=== PATIENT | female | born 1940 | race Caucasian/White ===

== ENCOUNTER 2017-01-08 05:51 | Inpatient (IN) | payer MEDICARE, BC ==
[2017-01-07 15:18] LABS: HEMATOCRIT 37.9 % (34.6-47.8); HEMOGLOBIN 12.8 g/dL (11.7-16.4); WHITE BLOOD COUNT 5.4 x10^3/uL (3.4-10)
[2017-01-07 15:24] LABS: ASPARTATE AMINO TRANSFERASE 18 U/L (15-37); BLOOD UREA NITROGEN 11 mg/dL (7-18)
[~2017-01-08] VITALS: Ht 154.9 cm; Wt 62.2 kg
[~2017-01-08 05:51] MED LIST: ASPI-496 PO; ATOR80TA PO; LEVO25TA2 PO; LISI-167 PO; METO-93 PO; NITR100C6 PO; OXYC-302 PO; TICA90TA PO; ZOLP12.52 PO
[2017-01-08] MEDS ORDERED: TRANEXAMIC ACID 100 MG/ML, 10ML ONE ×2 (06:07→09:03)
[2017-01-08] MEDS ORDERED: VANCOMYCIN PER PHARMACY MC STA (06:33)
[2017-01-08] MEDS ORDERED: FENTANYL PF 100 MCG/2ML ONE ×4 (06:41→09:42)
[2017-01-08] MEDS ORDERED: MIDAZOLAM 1 MG/ML, 2ML ONE (06:41)
[2017-01-08] MEDS ORDERED: PHARMACOKINETIC CONSULTATION MC ONE (07:00)
[2017-01-08] MEDS ORDERED: VANCOMYCIN PMX 1GM/200ML 200 ML IV ONE (07:00)
[2017-01-08] MEDS ORDERED: LACTATED RINGERS 1,000 ML IV SCH (07:03)
[2017-01-08] MEDS ORDERED: MULT-6 PO (07:05)
[2017-01-08] MEDS ORDERED: OMEP-110 PO (07:05)
[2017-01-08] MEDS ORDERED: morphine SULFATE/PF 1 MG/ML, 10ML ONE (07:08)
[2017-01-08] MEDS ORDERED: LIDOCAINE 1%, 2ML ONE (07:09)
[2017-01-08] MEDS ORDERED: ROPIvacaine/PF 0.2%, 20 ML ONE (07:09)
[2017-01-08] MEDS ORDERED: KETOROLAC 60 MG/2 ML ONE (07:09)
[2017-01-08] MEDS ORDERED: EPINEPHRINE 1 MG/ML, 1ML ONE (07:09)
[2017-01-08] MEDS ORDERED: LIDOCAINE 1%, 2ML SQ PRN (07:30)
[2017-01-08] MEDS ORDERED: DEXAMETHASONE 4 MG/ML, 1ML ONE (07:44)
[2017-01-08] MEDS ORDERED: ONDANSETRON 2MG/ML, 2ML ONE (07:44)
[2017-01-08] MEDS ORDERED: PROPOFOL 10 MG/ML, 20ML ONE (07:44)
[2017-01-08] MEDS ORDERED: METOPROLOL 1 MG/ML, 5ML ONE (07:44)
[2017-01-08] MEDS ORDERED: CLINDAMYCIN 150 MG/ML, 6ML ONE (07:53)
[2017-01-08] MEDS ORDERED: ACETAMINOPHEN 325 MG TABLET PO PRN ×2 (08:30→12:30)
[2017-01-08] MEDS ORDERED: METOPROLOL 1 MG/ML, 5ML IV PRN (08:30)
[2017-01-08] MEDS ORDERED: ALBUTEROL SULFATE 2.5 MG/3 ML NPPB PRN (08:30)
[2017-01-08] MEDS ORDERED: MEPERIDINE/PF 25MG/0.5ML IVPush PRN (08:30)
[2017-01-08] MEDS ORDERED: LORazepam 2 MG/ML, 1ML IVPush PRN (08:30)
[2017-01-08] MEDS ORDERED: hydrALAzine 20 MG/ML, 1ML IV PRN (08:30)
[2017-01-08] MEDS ORDERED: PROMETHAZINE 25 MG/ML, 1ML IV PRN (08:30)
[2017-01-08] MEDS: FENTANYL PF 100 MCG/2ML IV PRN ×2 (09:44→09:50)
[2017-01-08] MEDS ORDERED: ACETAMINOPHEN 650 MG/20.3 ML UDC ONE (09:52)
[2017-01-08] MEDS ORDERED: HYDROmorphone 2 MG/ML, 1ML ONE (09:53)
[2017-01-08] MEDS ORDERED: OXYcodone 5 MG/5 ML ORAL.SOL UDC ONE ×2 (09:53→10:25)
[2017-01-08] MEDS: HYDROmorphone 1 MG/ML, 1ML IV PRN ×5 (09:55→11:06)
[2017-01-08] MEDS: OXYcodone 5 MG/5 ML ORAL.SOL UDC PO PRN ×2 (09:56→10:26)
[2017-01-08] MEDS ORDERED: LORazepam 2 MG/ML, 1ML ONE (10:03)
[2017-01-08] MEDS ORDERED: PROMETHAZINE 25 MG/ML, 1ML ONE (10:37)
[2017-01-08 12:01] VITALS: BP 129/77
[2017-01-08] MEDS ORDERED: TRANEXAMIC ACID 1,000 MG in SODIUM CHLORIDE 0.9% 100 ML IVPB ONE (12:30)
[2017-01-08] MEDS ORDERED: LORazepam 1MG TABLET PO PRN (12:30)
[2017-01-08] MEDS ORDERED: MAGNESIUM HYDROXIDE 8%, 30ML UDC PO PRN (12:30)
[2017-01-08] MEDS ORDERED: ONDANSETRON 2MG/ML, 2ML IVPush PRN (12:30)
[2017-01-08] MEDS ORDERED: PROMETHAZINE 25 MG SUPP PR PRN (12:30)
[2017-01-08] MEDS ORDERED: ALUMINUM/MAG/SIMETHICONE 30 ML UDC PO PRN (12:30)
[2017-01-08] MEDS ORDERED: DIPHENHYDRAMINE 25 MG CAPSULE PO PRN (12:30)
[2017-01-08] MEDS ORDERED: OXYcodone IR 5MG TABLET PO PRN (12:30)
[2017-01-08] MEDS ORDERED: morphine SULFATE 10 MG/ML, 1ML IV PRN (12:30)
[2017-01-08] MEDS ORDERED: ONDANSETRON ODT 4 MG PO PRN (12:30)
[2017-01-08] MEDS ORDERED: DIAZEPAM 5 MG TABLET PO PRN (12:30)
[2017-01-08] MEDS ORDERED: SCOPOLAMINE PATCH, 1.5MG PATCH.TD72 TD PRN (12:30)
[2017-01-08] MEDS ORDERED: LORazepam 2 MG/ML, 1ML IV PRN (12:30)
[2017-01-08] MEDS ORDERED: PROMETHAZINE 25 MG/ML, 1ML IM PRN (12:30)
[2017-01-08] MEDS ORDERED: BISACODYL 10 MG SUPP PR PRN (12:30)
[2017-01-08] MEDS ORDERED: SENNA/DOCUSATE TABLET PO PRN (12:30)
[2017-01-08 13:05] VITALS: BP 117/68
[2017-01-08] MEDS: D5%-LACTATED RINGERS 1,000 ML IV SCH (13:25)
[2017-01-08] MEDS: CEFAZOLIN PMX 2GM/100ML 100 ML IVPB SCH ×2 (15:13→23:52)
[2017-01-08 19:15] VITALS: BP 118/66
[2017-01-08] MEDS ORDERED: ATORVASTATIN 80 MG TABLET PO SCH (21:00)
[2017-01-08] MEDS: HYDROcodone/APAP 5/325 TABLET PO PRN (21:43)
[2017-01-08] MEDS: DOCUSATE 100 MG CAPSULE PO SCH (21:43)
[2017-01-08] MEDS: METOPROLOL SUCCINATE 50 MG TAB.ER.24H PO SCH (21:43)
[2017-01-09] MEDS: HYDROcodone/APAP 5/325 TABLET PO PRN ×3 (00:17→12:53)
[2017-01-09] MEDS: D5%-LACTATED RINGERS 1,000 ML IV SCH ×2 (01:06→07:55)
[2017-01-09] MEDS ORDERED: RIVAROXABAN 10 MG TABLET PO SCH (06:00)
[2017-01-09] MEDS ORDERED: LEVOTHYROXINE 25 MCG TABLET PO SCH (06:00)
[2017-01-09 06:10] LABS: HEMATOCRIT 29.9 % (34.6-47.8); HEMOGLOBIN 10.1 g/dL (11.7-16.4)
[2017-01-09 06:30] VITALS: BP 104/64
[2017-01-09] MEDS ORDERED: OMEPRAZOLE 20 MG CAPSULE.DR PO SCH (07:30)
[2017-01-09] MEDS: DOCUSATE 100 MG CAPSULE PO SCH (07:55)
[2017-01-09] MEDS: METOPROLOL SUCCINATE 50 MG TAB.ER.24H PO SCH (07:58)
[2017-01-09] MEDS ORDERED: LISINOPRIL 10 MG TABLET PO SCH (09:00)
[2017-01-09] MEDS ORDERED: MULTIVITAMIN 1 TABLET PO SCH (09:00)
[2017-01-09] MEDS ORDERED: HYDR-3307 PO (09:34)
[2017-01-09] MEDS ORDERED: ONDA4TAB7 PO (09:35)
[2017-01-09] MEDS: KETOROLAC 30 MG/1 ML IV SCH ×2 (12:30→12:53)
[2017-01-09 13:01] VITALS: BP 101/64
== END 2017-01-09 13:40 | disposition home or self-care (01) | DRG 470 ==
LOC: ORIP 05:51 → 4NOR 11:41 → DCLOUNGE 01-09 13:23
PROVIDERS: ADMIT Orthopaedic Surgery; ATTEND Orthopaedic Surgery
PROC: 0SRD0J9 Replacement of Left Knee Joint with Synthetic Substitute, Cemented, Open Approach (ICD-10-PCS; principal; 2017-01-08 08:00)
DX: M17.12 Unilateral primary osteoarthritis, left knee (principal); K21.9 Gastro-esophageal reflux disease without esophagitis; Z88.0 Allergy status to penicillin
CPT/HCPCS: 36415; 80053; 81003; 83036; 85014; 85018; 85025; 85610; 85730; 87081; 93005; C1713; J0171; J1100; J1170; J1885; J2250; J2274; J2405; J2704; J2795; J3010; J3370; J3490; C1776; J0690; J2060; J7120; J7121